=== PATIENT | female | born 1985 | race Caucasian/White ===

== ENCOUNTER 2025-02-14 11:36 | Emergency (ER) | payer BC, OTHER ==
[~2025-02-14 11:36] MED LIST: Iopamidol 370 76% 100 ML VIAL ONE
[2025-02-14 11:58] LABS: #Basophils 0.1 thou/uL (0.0-0.2); #Eosinophils 0.2 thou/uL (0.0-0.7); #Lymphocytes 2.3 thou/uL (1.20-3.40); #Monocytes 0.9 thou/uL (0.11-0.59); #Neutrophils 7.6 thou/uL (1.40-6.50); %Basophils 1.2 % (0.0-1.0); %Eosinophils 1.4 % (0.0-10.0); %Lymphocytes 20.8 % (21.0-51.0); %Monocytes 8.4 % (0.0-10.0); %Neutrophils 68.3 % (42.0-75.0); Hematocrit 44.9 % (36.0-47.0); Hemoglobin 15.0 g/dL (12.0-16.0); Mean Corpuscular Hemoglobin 29.0 pg (27.0-31.0); Mean Corpuscular Volume 87.0 fl (78.0-98.0); Platelet Count 511 10x3/uL (130-400); Red Blood Cell (RBC) Count 5.16 mill/uL (4.20-5.40); White Blood Cell (WBC) Count 11.2 10x3/uL (4.8-10.8)
[2025-02-14 12:14] LABS: Troponin I 0.010 ng/mL (< 0.028)
[2025-02-14 12:15] LABS: Anion Gap 18 mmol/L (10-20); BUN (Urea Nitrogen) 14 mg/dL (7.0-18.7); Calc. Creatinine Clearance 0 mL/min (70-130); Carbon Dioxide 20 mmol/L (22-29); Chloride 104 mmol/L (98-107); Potassium 3.7 mmol/L (3.5-5.1); Sodium 138 mmol/L (136-145)
[2025-02-14 12:16] LABS: ALT (SGPT) 23 U/L (Less than 34); AST (SGOT) 32 U/L (11-34); Albumin 4.4 g/dL (3.1-4.5); Alkaline Phosphatase 61 U/L (40-110); Bilirubin, Total 0.8 mg/dL (0.3-1.2); Calcium 9.5 mg/dL (7.8-10.44); Globulin 3.3 g/dL (2.4-3.5); Glucose 105 mg/dL (70-105)
[2025-02-14] MEDS ORDERED: Sulfameth/Trimethoprim DS 800-160mg TAB ONE (13:56)
[2025-02-14 13:59] LABS: BHCG - Serum Negative (NEGATIVE); Pregs Control Background? CLEAR/WHITE (CLR/WHITE); Pregs Control Bar Appear? YES (CONTROL BAR)
[2025-02-14 14:18] LABS: Acetaminophen Less than 10 mcg/mL (Less than 10); Salicylate Less than 8.0 mg/dL (Less than 8.0)
== END 2025-02-14 14:01 | disposition home or self-care (01) ==
LOC: BURERS 11:36
DX: R06.02 Shortness of breath (principal); L03.116 Cellulitis of left lower limb; L03.115 Cellulitis of right lower limb; T40.5X5A Adverse effect of cocaine, initial encounter; F17.290 Nicotine dependence, other tobacco product, uncomplicated; Z79.899 Other long term (current) drug therapy
CPT/HCPCS: 71045; 71275; 80053; 80307; 83880; 84484; 84703; 85025; 86140; 93005; 96374; J2060; Q9967